=== PATIENT | female | born 1995 | race Caucasian/White ===

== ENCOUNTER 2021-04-27 22:14 | Inpatient (IN) ==
[~2021-04-27 22:14] MED LIST: *HR* Nalbuphine 10 MG/ML AMPUL IV PRN; Famotidine 20 MG/2 ML VIAL IVP PRN; Lidocaine 1% 20 ML MDV INFILT PRN; Metoclopramide 10 MG/2 ML VIAL IVP PRN; Naloxone 0.4 MG/ML INJ IVP PRN; Ondansetron 4 MG/2 ML VIAL IVP PRN
[2021-04-27] MEDS ORDERED: Ringers Solution, Lactated 1,000 ML IVC SCH (22:15)
[2021-04-27 22:39] LABS: Basophils % 0.3 %; Eosinophils # 0.1 K/mcL (0.0-0.6); Eosinophils % 0.7 %; Hematocrit 32.1 % (35.3-44.9); Hemoglobin 10.7 g/dL (11.5-15.4); Lymphocytes # 2.8 K/mcL (0.6-4.6); Lymphocytes % 25.8 %; Mean Corpuscular HGB Conc 33.3 g/dL (31.6-35.5); Mean Corpuscular Hemoglobin 32.1 pg (28.0-33.3); Mean Corpuscular Volume 96.4 fL (83.0-100.0); Mean Platelet Volume 9.7 fL (9.4-12.4); Monocytes # 0.6 K/mcL (0.0-1.3); Monocytes % 5.2 %; Neutrophils # 7.2 K/mcL (1.6-8.9); Platelet Count 220 K/mcL (140-400); Red Blood Count 3.33 M/mcL (3.82-4.97); Red Cell Distribution Width 13.2 % (11.5-14.5); White Blood Count 10.7 K/mcL (4.3-11.1)
[2021-04-27 22:50] LABS: Amphetamine Screen,Urine Negative ng/mL (Cutoff=1000); Barbiturate Screen,Urine Negative ng/mL (Cutoff=200); Benzodiazepines Screen,Urine Negative ng/mL (Cutoff=200); Cannabinoid Screen,Urine Negative ng/mL (Cutoff = 50); Cocaine Screen,Urine Negative ng/mL (Cutoff= 300); Opiate Screen,Urine Negative ng/mL (Cutoff=300); Phencyclidine Screen,Urine Negative ng/mL (Cutoff=25)
[2021-04-27] MEDS ORDERED: Oxytocin 20 units/ LR 1000 mL 20 UNIT/1,000 ML BAG IVC SCH (23:45)
[2021-04-28] MEDS ORDERED: Epidural Premix (fent/bupiv) 110 ML EP ONE (00:05)
[2021-04-28] MEDS ORDERED: Ropivacaine/PF 0.2% 20 ML VIAL ONE (00:06)
[2021-04-28] MEDS ORDERED: *HR* FentaNYL (PF) 100 MCG/2 ML VIAL ONE (00:06)
[2021-04-28] MEDS ORDERED: EPHEDrine 50 MG/ML VIAL IVP PRN (00:39)
[2021-04-28] MEDS ORDERED: Epidural Premix (fent/bupiv) 110 ML EP SCH (00:45)
[2021-04-28] MEDS ORDERED: Lanolin 7 G OINT...G. TP PRN (07:26)
[2021-04-28] MEDS ORDERED: Measles/Mumps/Rubella Vacc 0.5 ML VIAL SQ PRN (07:26)
[2021-04-28] MEDS ORDERED: Rho Immune Globulin 1,500 UNIT SYRINGE IM PRN (07:26)
[2021-04-28] MEDS ORDERED: Oxytocin 20 units/ LR 1000 mL 20 UNIT/1,000 ML BAG IVC ONE (07:26)
[2021-04-28] MEDS ORDERED: Oxytocin 20 units/ LR 1000 mL 20 UNIT/1,000 ML BAG IVC SCH (07:26)
[2021-04-28] MEDS ORDERED: Sennosides 8.6 MG TABLET PO PRN (07:26)
[2021-04-28] MEDS ORDERED: Benzocaine/Menthol 56 GM AEROSOL SPRAY TP PRN (07:26)
[2021-04-28] MEDS ORDERED: Ibuprofen 600 MG TABLET PO ONE (09:36)
[2021-04-28] MEDS: Prenatal Vit/FA 1 EACH TABLET PO SCH (09:39)
[2021-04-28] MEDS: Acetaminophen 325 MG TABLET PO SCH ×2 (12:19→17:51)
[2021-04-28] MEDS: Ibuprofen 600 MG TABLET PO SCH (15:45)
[2021-04-29] MEDS: Acetaminophen 325 MG TABLET PO SCH ×4 (01:06→20:44)
[2021-04-29] MEDS: Ibuprofen 600 MG TABLET PO SCH ×4 (01:06→20:44)
[2021-04-29 04:38] LABS: Basophils % 0.3 %; Eosinophils # 0.2 K/mcL (0.0-0.6); Eosinophils % 1.1 %; Hemoglobin 10.1 g/dL (11.5-15.4); Immature Granulocytes % 1.1 % (0-4); Lymphocytes # 2.9 K/mcL (0.6-4.6); Lymphocytes % 21.3 %; Mean Corpuscular HGB Conc 34.8 g/dL (31.6-35.5); Mean Corpuscular Hemoglobin 33.1 pg (28.0-33.3); Mean Corpuscular Volume 95.1 fL (83.0-100.0); Mean Platelet Volume 9.6 fL (9.4-12.4); Monocytes # 0.8 K/mcL (0.0-1.3); Monocytes % 5.8 %; Neutrophils # 9.5 K/mcL (1.6-8.9); Platelet Count 193 K/mcL (140-400); Red Blood Count 3.05 M/mcL (3.82-4.97); Red Cell Distribution Width 13.3 % (11.5-14.5); Segmented Neutrophils % 70.4 %; White Blood Count 13.5 K/mcL (4.3-11.1)
[2021-04-29] MEDS: Prenatal Vit/FA 1 EACH TABLET PO SCH (08:55)
[2021-04-30] MEDS: Ibuprofen 600 MG TABLET PO SCH (07:48)
[2021-04-30] MEDS: Acetaminophen 325 MG TABLET PO SCH (07:48)
[2021-04-30 07:49] VITALS: BP 123/80; PULSE 86; TEMP 97.8; O2SAT 97
[2021-04-30] MEDS: Prenatal Vit/FA 1 EACH TABLET PO SCH (07:49)
== END 2021-04-30 11:46 | disposition home or self-care (01) | DRG 807 ==
LOC: 1NENULAB → 1NENUOBS 04-28 08:51
PROVIDERS: ADMIT Advanced Practice Midwife; ATTEND Advanced Practice Midwife